=== PATIENT | female | born 1950 | race Caucasian/White ===

== ENCOUNTER 2019-10-05 06:04 | Day surgery (SDC) | payer MEDICARE ==
[2019-10-02 09:29] VITALS: BMI 34.3
[2019-10-05] MEDS ORDERED: Famotidine/PF 20 mg/2ml Vial ONE (06:34)
[2019-10-05] MEDS ORDERED: Fentanyl 100 MCG/2 ML VIAL ONE (06:34)
[2019-10-05 06:36] LABS: #Basophils 0.1 thou/uL (0.0-0.2); #Eosinphils 0.5 thou/uL (0.0-0.7); #Neutrophils 7.4 thou/uL (1.40-6.50); %Basophils 0.9 % (0.0-1.0); %Eosinophils 4.4 % (0.0-10.0); %Lymphocytes 25.1 % (21.0-51.0); %Monocytes 8.2 % (0.0-10.0); %Neutrophils 61.5 % (42.0-75.0); Hemoglobin 15.1 g/dL (12.0-16.0); Mean Corpuscular HGB CONC 31.3 g/dL (32.0-36.0); Mean Corpuscular Hemoglobin 29.4 pg (27.0-31.0); Mean Corpuscular Volume 93.9 fL (78.0-98.0); Mean Platelet Volume 7.1 fL (7.4-10.4); Platelet Count 285 thou/uL (130-400); RBC Distribution Width 12.7 % (11.5-14.5); Red Blood Cell (RBC) Count 5.12 mill/uL (4.20-5.40)
[2019-10-05] MEDS ORDERED: Bupivacaine PF 0.5% 30 ML VIAL ONE (06:45)
[2019-10-05] MEDS ORDERED: Lidocaine 1% w/Epinephrine 1:100K 20 ML VIAL ONE (06:51)
[2019-10-05 06:53] LABS: ALT (SGPT) 22 U/L (8-55); AST (SGOT) 24 U/L (5-34); Alkaline Phosphatase 117 U/L (40-110); Anion Gap 15 mmol/L (10-20); BUN (Urea Nitrogen) 27 mg/dL (9.8-20.1); Bilirubin, Total 0.5 mg/dL (0.2-1.2); Calc. Creatinine Clearance 66 mL/min (70-130); Calcium 9.8 mg/dL (7.8-10.44); Carbon Dioxide 27 mmol/L (23-31); Chloride 98 mmol/L (98-107); Estimated GFR-MDRD 48; Globulin 4.1 g/dL (2.4-3.5); Glucose 106 mg/dL (80-115); Potassium 4.6 mmol/L (3.5-5.1); Protein, Total 8.1 g/dL (6.0-8.3); Sodium 135 mmol/L (136-145)
[2019-10-05] MEDS ORDERED: Midazolam HCl 2 mg/2 ml Vial ONE (07:29)
[2019-10-05] MEDS ORDERED: Propofol 500 MG/50 ML VIAL ONE (07:29)
[2019-10-05] MEDS ORDERED: Lidocaine 1% PF 5 ML VIAL ONE (10:25)
[2019-10-05] MEDS ORDERED: PHENYLEPHRINE-NS 100 MCG/ML 10 ML SYRINGE ONE (10:25)
[2019-10-05] MEDS ORDERED: Ondansetron PF 4 MG/2 ML Vial ONE (10:25)
--- NOTE | 2019-10-05 11:37 | OP ---
DATE OF PROCEDURE: 10/05/2019 PREOPERATIVE DIAGNOSIS: Squamous cell carcinoma, left upper back. PROCEDURE PERFORMED: Wide local excision. INDICATIONS FOR PROCEDURE: The patient is a 69-year-old female, who has a rapidly enlarging raised mass on the left upper back. Core biopsy is positive for squamous cell carcinoma. FINDINGS: A 2.5 x 2.5 cm raised mass in the left upper back. A 15 x 8 cm excision was performed. DESCRIPTION OF PROCEDURE: After informed consent was obtained, the patient was taken to the operating room, given total IV anesthesia, placed in the right lateral decubitus position. Her back was prepped and draped in usual fashion. Local anesthesia was infiltrated subcutaneously and deep. An elliptical incision was performed, subcu divided sharply with at least 1 cm margins, turned out to be about 15 x 8 cm. This was marked superior and sent to Pathology for further analysis. Hemostasis was achieved with electrocautery. Subcu was reapproximated with interrupted 3-0 Vicryl. Skin was closed with interrupted vertical mattress sutures with 3-0 Prolene suture. Sterile bandage applied. The patient tolerated the procedure well, transferred to Recovery in good condition. Sponge and needle counts verified correct x2. Job ID: [id number]
--- NOTE | 2019-10-06 07:15 | EKG ---
Test Reason : PREOP Blood Pressure : / mmHG Vent. Rate : 077 BPM Atrial Rate : 077 BPM P-R Int : 154 ms QRS Dur : 118 ms QT Int : 382 ms P-R-T Axes : 055 069 -05 degrees QTc Int : 432 ms atrial pacemaker Low voltage QRS Incomplete left bundle branch block Nonspecific T wave abnormality Abnormal ECG No previous ECGs available Confirmed by DR. Bryson GARCÍA ([id number]) on 10/06/2019 7:15:03 AM Referred By: STEWART Confirmed By:DR. Bryson GARCÍA
== END 2019-10-05 09:40 | disposition home or self-care (01) ==
LOC: SDC 06:04
PROVIDERS: ATTEND Surgery
PROC: 0HB6XZZ Excision of Back Skin, External Approach (ICD-10-PCS; principal; 2019-10-05)
DX: C44.529 Squamous cell carcinoma of skin of other part of trunk (principal); I10 Essential (primary) hypertension; I25.10 Atherosclerotic heart disease of native coronary artery without angina pectoris; J44.9 Chronic obstructive pulmonary disease, unspecified; G47.30 Sleep apnea, unspecified; F32.9 Major depressive disorder, single episode, unspecified; I25.2 Old myocardial infarction; G25.81 Restless legs syndrome; M19.90 Unspecified osteoarthritis, unspecified site; Z87.891 Personal history of nicotine dependence; Z79.82 Long term (current) use of aspirin; Z79.899 Other long term (current) drug therapy; Z95.810 Presence of automatic (implantable) cardiac defibrillator
CPT/HCPCS: 11606; 80053; 85025; 93005; J0690; J2250; J2704; J3010; 36415; 88305; 93010; S0020; S0028

== ENCOUNTER 2021-09-27 15:56 | Outpatient (CLI) | payer MEDICARE | END 2021-09-27 15:57 | disposition home or self-care (01) | LOC: RAD 15:56 | PROVIDERS: ATTEND Family Medicine | DX: M54.50 Low back pain, unspecified (principal); R09.89 Other specified symptoms and signs involving the circulatory and respiratory systems; J90 Pleural effusion, not elsewhere classified; Z95.0 Presence of cardiac pacemaker; W19.XXXA Unspecified fall, initial encounter | CPT/HCPCS: 71045; 72100 ==